=== PATIENT | male | born 1995 | race African-American/Black ===

== ENCOUNTER 2018-09-25 09:16 | Day surgery (SDC) | payer OTHER ==
[2018-09-25] MEDS ORDERED: SALINE 0.65% NAS 14.1 GM TUBE NASAL (12:06)
[2018-09-25] MEDS ORDERED: LIDOCAINE 100 MG SYRINGE (12:13)
[2018-09-25] MEDS ORDERED: ONDANSETRON 4 MG INJ (12:13)
[2018-09-25] MEDS ORDERED: PROPOFOL 20 ML (12:13)
[2018-09-25] MEDS ORDERED: CEFAZOLIN 1 GM INJ (12:30)
[2018-09-25] MEDS: LIDOCAINE 1%/EPI 30 ML INJ (12:43)
[2018-09-25] MEDS: TRIAMCINOLONE ACET 40 MG/ML INJ (12:52)
[2018-09-25] MEDS: BACITRACIN/POLYMYXIN 28.35 GM OINT TOP (12:56)
[2018-09-25] MEDS ORDERED: OXYCODONE/ACETAMINOPHEN (5/325) TAB PO ×2 (13:00)
[2018-09-25] MEDS ORDERED: MEPERIDINE 25 MG INJ IV (13:00)
[2018-09-25] MEDS ORDERED: ONDANSETRON 4 MG INJ IV (13:00)
[2018-09-25] MEDS ORDERED: DIPHENHYDRAMINE 50 MG INJ IV (13:00)
[2018-09-25] MEDS ORDERED: METOCLOPRAMIDE 10 MG INJ IV (13:00)
[2018-09-25] MEDS ORDERED: FENTAnyl 50 MCG/ML VIAL IV ×3 (13:00)
[2018-09-25] MEDS ORDERED: MIDAZOLAM 1 MG/ML 2 ML INJ IV (13:00)
== END 2018-09-25 14:58 | disposition home or self-care (01) ==
LOC: SDS 09:16
DX: L91.0 Hypertrophic scar (principal)
CPT/HCPCS: 14060; 88305